=== PATIENT | male | born 1985 | race Caucasian/White ===

== ENCOUNTER 2024-11-26 17:43 | Emergency (ER) | payer OTHER ==
[2024-11-26] MEDS ORDERED: MORPHINE 4 MG/ML SYR ONE (18:47)
[2024-11-26] MEDS ORDERED: NA CHLORIDE 0.9% 1,000 ML ONE (18:47)
[2024-11-26] MEDS ORDERED: ONDANSETRON 4 MG/2 ML VIAL ONE (18:47)
[2024-11-26 18:54] LABS: Absolute Lymphocytes (CBC) 1.5 K/uL (0.7-4.9); Hematocrit 44.5 % (39.6-49.0); Hemoglobin 14.9 g/dL (13.6-17.9); MCH 29.0 pg (27.0-35.0); MCHC 33.4 g/dL (32.0-36.0); MCV 87.0 fL (80-100); MPV 7.9 fL (7.6-11.3); Nucleated RBC Absolute Count 0.0 (0-0); Nucleated Red Blood Cells % 0.1 % (0-0); RBC Red Blood Cell Count 5.12 M/uL (4.33-5.43); White Blood Count 6.00 thou/uL (4.3-10.9)
[2024-11-26 19:10] LABS: Anion Gap 6.6 mEq/L (5.0-15.0); BUN Blood Urea Nitrogen 15.0 mg/dL (7-18); Glucose Level 90.0 mg/dL (74-106); Potassium 3.6 mEq/L (3.5-5.1)
[2024-11-26] MEDS ORDERED: CODEINE 30MG/APAP 300MG TAB ONE (19:25)
[2024-11-26] MEDS ORDERED: KETOROLAC 30 MG/ML INJ ONE (19:25)
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
[2024-11-26 21:56] VITALS: BP 146/102; O2SAT 100
== END 2024-11-26 20:17 | disposition home or self-care (01) ==
LOC: ER 17:43
DX: Z04.1 Encounter for examination and observation following transport accident (principal); V59.49XA Driver of pick-up truck or van injured in collision with other motor vehicles in traffic accident, initial encounter
CPT/HCPCS: 96361; 85025; 80048; 36415; 70450; 71250; 72125; 74176; 71045; 96374; 99284; J1885; J7030; J2405